=== PATIENT | male | born 1970 | race Caucasian/White ===

== ENCOUNTER 2019-07-09 03:30 | Emergency (ER) | payer SELFPAY ==
[~2019-07-09] VITALS: Ht 180.3 cm; Wt 95.0 kg
--- NOTE | 2019-07-09 03:36 | PHYS DOC ---
Past History Past Medical History: A-Fib, Alcoholism, Anxiety, CAD, Constipation, Depression, GERD, High Cholesterol, Hypertension, Other Past Medical History Hx. of Chronic Pain, Tremor, Pul. Nodule, elev. LFT's, Hx of Mesenteric Art. Ischemia and Thrombus Past Surgical History: Knee Replacement, Other Smoking: Cigarettes General Adult EDM: Chief Complaint: ABDOMINAL PAIN HPI: HPI: "..I was just discharged from [facility]..I was in there for 10 days.. they said I had a clot to a major vessel in my abdomen.. and that was the cause of my abdomen pain.. I have that same pain...they tried all kinds of pain meds.. and the only thing that works is oxycodone..".. " I ve had this problem .. before... they usually admit me and see if it will pass..." Patient is a 48 year old male who presents with above hx and complaints of abd. pain over his entire abdomen. Patient localizes pain primarily to the lower abdomen area on rebound. Patient did eat at 1700 hrs. Pain started at 2000 Hrs. Did have a stool today at 1500 hrs. that was reportedly normal. Patient reports a past history of coronary artery disease, hypertension, elevated cholesterol, and continued tobacco abuse. Patient denies any trauma. No history of bad food intake., No specific ill contacts. Patient denies any recent travel outside the [place] area. Patient normally follows at [facility] for his care Dr. Martin. Pt. reportedly was admitted at [facility] for Mesenteric Artery Thrombosis for 10 days and was discharged two days ago. Will attempt to get those records. Pt. does continue to smoke. Pt. denies any intake of bad food. Pt. states the only thing that relieves his abdomen pain is oxycodone. Review of Systems: Review of Systems: Constitutional: Denies fever or chills Eyes: Denies change in visual acuity HENT: Denies nasal congestion or sore throat Respiratory: Denies cough or shortness of breath Cardiovascular: Denies chest pain or edema GI: Complaints of abdominal pain, nausea. Denies vomiting, bloody stools or diarrhea : Denies dysuria Musculoskeletal: Denies back pain or joint pain Integument: Denies rash Neurologic: Denies headache, focal weakness or sensory changes Endocrine: Denies polyuria or polydipsia Lymphatic: Denies swollen glands Psychiatric: Denies depression or anxiety Heart Score: HEART Score for Chest Pain: HEART Score for Chest Pain Response (Comments) Value History Slighlty/Non-Suspicious 0 ECG Nonspecific Repolarizatio 1 Age >45 - < 65 1 Risk Factors 1 or 2 Risk Factors 1 Total 3 Risk Factors: Risk Factors: DM, Current or recent (<one month) smoker, HTN, HLP, family history of CAD, obesity. Risk Scores: Score 0 - 3: 2.5% MACE over next 6 weeks - Discharge Home Score 4 - 6: 20.3% MACE over next 6 weeks - Admit for Clinical Observation Score 7 - 10: 72.7% MACE over next 6 weeks - Early Invasive Strategies Family History: Family History: Non-contributory to presentation Current Medications: Current Meds: See nursing for home medications Allergies: Allergies: No known drug allergies Physical Exam: PE: Constitutional: Reports acute distress, rates his pain as 10 out of 10, non- toxic appearance. [] HENT: Normocephalic, atraumatic, bilateral external ears normal, oropharynx moist, no oral exudates, nose normal. [] Eyes: PERRLA, EOMI, conjunctiva normal, no discharge. [] Neck: Normal range of motion, no tenderness, supple, no stridor. [] Cardiovascular:Heart rate regular rhythm, no murmur [. The monitor shows a sinus rhythm at 70 bpm. No acute dysrhythmia. Lungs & Thorax: Bilateral breath sounds equal at apex with a few scattered wheezes on auscultation [] Abdomen: Bowel sounds decreased , soft, generalized tenderness, distended, no masses, no pulsatile masses. Rebound to the lower half abdomen. Old surgery scar. Skin: Warm, dry, no erythema, no rash. [] Back: No tenderness, no CVA tenderness. [] Extremities: No tenderness, no cyanosis, no clubbing, ROM intact, no edema. Mild psoas bilateral. Old surgical scars knees Neurologic: Alert and oriented X 3, normal motor function, normal sensory function, no focal deficits noted. [] Psychologic: Affect anxious, judgement normal, mood normal. [] EKG: EKG: My interpretation of EKG shows a sinus rhythm at 87 bpm. There is some nonspecific contour changes in the inferior leads. There is also some nonspecific T wave changes. And a prolonged QT interval at 396 ms. QTc intervals 477 ms. No findings of acute STEMI of contralateral changes [] Radiology/Procedures: Radiology/Procedures: My interpretation of Acute Abd. films. Shows multiple loops of small bowel consistent with ileus. [address] [address] IMAGING REPORT Signed PATIENT: ORTIZ MERINO ACCOUNT: [id number] : 1970 LOCATION: ER AGE: 48 SEX: M EXAM STATUS: REG ER ORD. PHYSICIAN: DESTINEE LARES MD REASON: pain PROCEDURE: CHEST PA & LATERAL EXAM: PA and Lateral Views of the Chest DATE: 07/09/2019 4:09 AM INDICATION: Chest pain COMPARISON: No Prior FINDINGS: The heart is not enlarged. Changes of cardiothoracic surgery with median sternotomy wires and mediastinal clips. Mediastinal and hilar contours are normal. No focal parenchymal airspace opacity. No pleural effusion or pneumothorax. IMPRESSION: 1. No radiographic evidence for acute cardiopulmonary process. Electronically signed by: Ricki Allen MD (07/09/2019 4:51 AM) DANN DICTATED AND SIGNED BY: RICKI ALLEN MD DATE: 07/09/19 045 CC: DESTINEE LARES MD; ALICIA MARTIN [employer] ~ [] IMAGING REPORT Signed PATIENT: ORTIZ MERINO ACCOUNT: [id number] : 1970 LOCATION: ER AGE: 48 SEX: M EXAM STATUS: REG ER ORD. PHYSICIAN: DESTINEE LARES MD REASON: pain PROCEDURE: ABDOMEN SUPINE & UPRIGHT EXAM: AP views of the abdomen in upright and supine positions. CLINICAL INDICATION: Abdominal pain COMPARISON: None. FINDINGS and IMPRESSION: 1. Multiple dilated loops of small bowel are seen, particularly in the upper abdomen, likely from bowel obstruction. 2. No abnormal soft tissue mass effect. 3. No free intraperitoneal gas. Electronically signed by: Ricki Allen MD (07/09/2019 4:52 AM) DANN DICTATED AND SIGNED BY: RICKI ALLEN MD DATE: 07/09/19 0452 CC: DESTINEE LARES MD; ALICAI MARTIN APRN ~ Course & Med Decision Making: Course & Med Decision Making Pertinent Labs and Imaging studies reviewed. (See chart for details) Pt. requests to not return to [facility] if he is admitted. Discussed presentation, testing, and tx. plan with Dr. Huynh and Felipe at 0600. Dr. Huynh will accept pt. with Dr. Wang Consult. Dr. Wang requested a GI consult. Call placed for GI consult at 06:15. Dr. Carty floor person per [facility]. Discussed presentation, testing and tx. plan. 0715. Will consult on pt. Still awaiting room assignment at [facility]. Pt. does report improvement in his discomfort. 0923: Hr.s.. Pt. endorse to Dr. Desouza pending his transfer to [facility] . Impression: 1.Abdomen Pain 2. Hx. of Episodes Small Bowel Ischemia 3. Small bowel ileus 4. Leukocytosis 20.2 5. Hypokalemia 3.2 6. Elevated creatinine 1.6 7. Hypo-magnesium 1.3 8. Elevated lactic acid 2.6 9. Continued tobacco use 10. History of A. fib 11. History of coronary artery disease 12. History of chronic pain Impression: 1. Abdomen Pain 2. Hx. of Mesenteric Artery Ischemia and Thrombosis- 3. Small Bowel Ileus 4. Leukocytosis 20.2 5. Mild hypokalemia 3.2 6. Elevated creatinine 1.6 7. Diabetes glucose 141 8. Hypo-magnesium 1.3 9. Elevated lactic acid 2.6 10. History of coronary artery disease 11. History of A. fib 12. History of alcohol abuse 13. History of tobacco abuse 14. History of hypertension [] Dragon Disclaimer: Dragon Disclaimer: This electronic medical record was generated, in whole or in part, using a voice recognition dictation system. Departure Departure: Disposition: 01 HOME/RESIDENCE PRIOR TO ADM Condition: STABLE Dragon Disclaimer This chart was dictated in whole or in part using Voice Recognition software in a busy, high-work load, and often noisy Emergency Department environment. It may contain unintended and wholly unrecognized errors or omissions. Dragon Disclaimer This chart was dictated in whole or in part using Voice Recognition software in a busy, high-work load, and often noisy Emergency Department environment. It may contain unintended and wholly unrecognized errors or omissions. Dragon Disclaimer This chart was dictated in whole or in part using Voice Recognition software in a busy, high-work load, and often noisy Emergency Department environment. It may contain unintended and wholly unrecognized errors or omissions. DESTINEE LARES MD Jul 09, 2019 03:36
[2019-07-09] MEDS ORDERED: MORPHINE SULFATE 10 MG/ML SYRINGE. ONE (03:57)
[2019-07-09] MEDS ORDERED: IV RINGERS SOLUTION,LACTATED 1,000 ML IV SCH (04:09)
[2019-07-09 04:25] LABS: BASO # 0.2 x10^3/uL (0.0-0.2); BASO % 1 % (0-3); EOS # 0.5 x10^3/uL (0.0-0.7); EOS % 2 % (0-3); HEMATOCRIT 39.8 % (39.0-53.0); HEMOGLOBIN 13.3 g/dL (13.0-17.5); LYMPH # 2.2 x10^3/uL (1.0-4.8); LYMPH % 11 % (24-48); MEAN CORPUSCULAR HEMOGLOBIN 34 pg (25-35); MEAN CORPUSCULAR HGB CONC 33 g/dL (31-37); MEAN CORPUSCULAR VOLUME 102 fL (79-100); MONO # 0.7 x10^3/uL (0.0-1.1); MONO % 4 % (0-9); NEUT # 16.6 x10^3uL (1.8-7.7); NEUT % 82 % (31-73); PLATELET COUNT 795 x10^3/uL (140-400); RED BLOOD COUNT 3.89 x10^6/uL (4.30-5.70); RED CELL DISTRIBUTION WIDTH 15.5 % (11.5-14.5); WHITE BLOOD COUNT 20.2 x10^3/uL (4.0-11.0)
[2019-07-09] MEDS ORDERED: MORPHINE SULFATE 10 MG/ML SYRINGE. SQ ONE ×3 (04:30→06:00)
[2019-07-09 04:34] LABS: CALCIUM 9.3 mg/dL (8.5-10.1); CREATININE 1.6 mg/dL (0.7-1.3); GFR 46.6; POTASSIUM 3.2 mmol/L (3.5-5.1)
[2019-07-09 04:42] LABS: % BANDS 9 % (0-9); % LYMPHS 10 % (24-48); % MONOS 6 % (0-10); % SEGS 75 % (35-66); PLT ESTIMATE ADEQUATE (ADEQUATE)
[2019-07-09 04:45] LABS: ALBUMIN 3.3 g/dL (3.4-5.0); DIRECT BILIRUBIN 0.1 mg/dL (0.0-0.2); MAGNESIUM 1.3 mg/dL (1.8-2.4); TOTAL BILIRUBIN 0.4 mg/dL (0.2-1.0); TOTAL PROTEIN 7.8 g/dL (6.4-8.2)
--- NOTE | 2019-07-09 04:54 | RAD ---
EXAM: PA and Lateral Views of the Chest DATE: 07/09/2019 4:09 AM INDICATION: Chest pain COMPARISON: No Prior FINDINGS: The heart is not enlarged. Changes of cardiothoracic surgery with median sternotomy wires and mediastinal clips. Mediastinal and hilar contours are normal. No focal parenchymal airspace opacity. No pleural effusion or pneumothorax. IMPRESSION: 1. No radiographic evidence for acute cardiopulmonary process. Electronically signed by: Ricki Raman MD (07/09/2019 4:51 AM) DANN
--- NOTE | 2019-07-09 04:55 | RAD ---
EXAM: AP views of the abdomen in upright and supine positions. CLINICAL INDICATION: Abdominal pain COMPARISON: None. FINDINGS and IMPRESSION: 1. Multiple dilated loops of small bowel are seen, particularly in the upper abdomen, likely from bowel obstruction. 2. No abnormal soft tissue mass effect. 3. No free intraperitoneal gas. Electronically signed by: Ricki Raman MD (07/09/2019 4:52 AM) DANN
[2019-07-09] MEDS ORDERED: cefTRIAXone SODIUM 1 GM VIAL ONE (05:21)
[2019-07-09] MEDS ORDERED: IV NORMAL SALINE 50ML 50 ML ONE (05:21)
[2019-07-09] MEDS ORDERED: CONTRAST GIVEN MC PRN (06:00)
[2019-07-09] MEDS ORDERED: IOHEXOL 240 MG/ML 50ML VIAL. PO ONE (06:00)
[2019-07-09] MEDS ORDERED: IOHEXOL 300 MG/ML 75 ML VIAL. IV ONE (06:00)
--- NOTE | 2019-07-09 06:10 | EKG ---
[address] [address] Test Date: 2019-07-09 Test Time: 04:18:46 Pat Name: ORTIZ MERINO Department: Room: Gender: M County Agent: : 1970 Requested By: DESTINEE LARES Order Number: [id number] Reading MD: Mike Kim Measurements Intervals [place] Rate: 87 P: 46 VT: 132 QRS: 8 QRSD: 92 T: 89 QT: 396 QTc: 477 Interpretive Statements SINUS RHYTHM NONSPECIFIC ST-T WAVE CHANGES. CONSIDER INFERIOR MYOCARDIAL DAMAGE Electronically Signed On 07-09-2019 11:24:06 CDT by Mike Kim
[2019-07-09] MEDS ORDERED: MAGNESIUM SULFATE 2GM 50 ML IV ONE (06:30)
[2019-07-09] MEDS ORDERED: IV RINGERS SOLUTION,LACTATED 1,000 ML IV ONE (06:30)
--- NOTE | 2019-07-09 07:36 | RAD ---
CT ABD PELV W/ORAL IV CONTRAST History: Severe abdominal pain, history of atrial fibrillation and intestinal ischemia Comparison: None. Technique: After administration of intravenous contrast, helical CT of the abdomen and pelvis was performed from the lung bases through the ischial tuberosities. Coronal and sagittal reconstructions were obtained. 60 mL of Omnipaque 300 were used. One or more of the following dose reduction techniques were utilized: Automated exposure control (AEC), Adjustment of mA and/or kV according to patient size, Use of iterative reconstruction technique such as ASiR, CT scan done according to ALARA and image gently/image wisely Findings: The visualized lung bases are clear. The gallbladder, pancreas, spleen, and bilateral adrenal glands are normal. Low-attenuation of the left hepatic lobe probably represents geographic steatosis. Symmetric renal enhancement. There is no focal renal mass. There is no hydronephrosis. Multiple dilated loops of small bowel measuring up to 4 cm in diameter. A loop of small bowel bowel in the low abdomen has indistinct margins with mucosal hypoenhancement as well as extensive mesenteric induration and several foci of adjacent extraluminal gas. Moderate abdominal and pelvic free fluid There is no mesenteric or retroperitoneal adenopathy. Aortoiliac atherosclerotic disease Urinary bladder is decompressed. There is no pelvic or inguinal adenopathy. Degenerative changes of the spine. IMPRESSION: Multiple dilated loops of small bowel with distal decompression concerning for obstruction or ischemic enteritis given patient's history. Loop of bowel in the lower abdomen has indistinct margins with mucosal hypoenhancement and adjacent extraluminal gas concerning for devitalized bowel with perforation. Moderate abdominal and pelvic free fluid. Findings were discussed with Dr. Milan at 7:24 AM on 07/09/2019 FOR INTERNAL CODING PURPOSES RESULT CODE: (C) Electronically signed by: Tl Panda MD (07/09/2019 7:33 AM) [id number]
--- NOTE | 2019-07-09 08:08 | RAD ---
KUB History: Reposition nasogastric tube Comparison: Exam earlier the same day Findings: Single supine AP view of the abdomen is submitted. Enteric catheter has been advanced, now in the region of stomach. There are again gas dilated loops of small bowel. Impression: 1. Enteric catheter is now in the stomach. 2. There are again gas dilated loops of small bowel. Electronically signed by: Tl Dorado MD (07/09/2019 8:05 AM) [id number]
--- NOTE | 2019-07-09 08:10 | RAD ---
KUB History: NG placement Comparison: CT the same day Findings: Single supine AP view of the abdomen is submitted. There is enteric catheter although the tip terminates just above the expected region of gastroesophageal junction, does not course into the stomach. There are again gas dilated loops of small bowel. Impression: 1. Tip of the enteric catheter is just above the expected region of the gastroesophageal junction. Catheter has already been advanced as confirmed by interval exam since the time of this exam and time of final interpretation. 2. There are again gas dilated loops of small bowel. Electronically signed by: Tl Dorado MD (07/09/2019 8:07 AM) [id number]
[2019-07-09 10:08] VITALS: BP 110/78
== END 2019-07-09 10:37 | disposition home or self-care (01) ==
LOC: ER 03:30
DX: Z03.818 Encounter for observation for suspected exposure to other biological agents ruled out (principal); R10.30 Lower abdominal pain, unspecified; R10.84 Generalized abdominal pain; D72.829 Elevated white blood cell count, unspecified; E87.6 Hypokalemia; K56.7 Ileus, unspecified; E11.9 Type 2 diabetes mellitus without complications; R79.89 Other specified abnormal findings of blood chemistry; E83.42 Hypomagnesemia; R74.0 Nonspecific elevation of levels of transaminase and lactic acid dehydrogenase [LDH]; I10 Essential (primary) hypertension; I48.91 Unspecified atrial fibrillation; I25.10 Atherosclerotic heart disease of native coronary artery without angina pectoris; F10.20 Alcohol dependence, uncomplicated; K21.9 Gastro-esophageal reflux disease without esophagitis; E78.00 Pure hypercholesterolemia, unspecified; F17.210 Nicotine dependence, cigarettes, uncomplicated; Y90.0 Blood alcohol level of less than 20 mg/100 ml
CPT/HCPCS: 36415; 71046; 74018; 74019; 74177; 80048; 80076; 82150; 82550; 83605; 83690; 83735; 83880; 84484; 85007; 85025; 85379; 85610; 85730; 86705; 86709; 86803; 87340; 87635; 93005; 96365; 96367; 96372; 96375; 99285; G0480; J0696; J2270; J3010; J3475; J3490; J7120; Q9967